=== PATIENT | male | born 1950 | race Two or more races ===

== ENCOUNTER 2024-06-19 05:04 | Day surgery (SDC) | payer OTHER ==
[2024-06-15 09:30] VITALS: BMI 30.8
[2024-06-19] MEDS ORDERED: KETAMINE HCL 200 MG/20 ML VIAL ONE (08:02)
[2024-06-19] MEDS ORDERED: MIDAZOLAM HCL 2 MG/2 ML SINGLE DOSE VIAL ONE (08:03)
[2024-06-19 08:33] VITALS: RESP 18
[2024-06-19 09:37] VITALS: BP 130/70; PULSE 56; TEMP 97
== END 2024-06-19 09:50 | disposition home or self-care (01) ==
LOC: JASU-SURG 05:04
PROVIDERS: ATTEND Urology
PROC: 0TF4XZZ Fragmentation in Left Kidney Pelvis, External Approach (ICD-10-PCS; principal; 2024-06-19 08:06)
DX: N20.0 Calculus of kidney (principal)
CPT/HCPCS: 82962